=== PATIENT | female | born 1985 | race Caucasian/White ===

== ENCOUNTER → 2025-04-09 | Outpatient (CLI) | payer OTHER, SELFPAY ==
[2025-04-09 10:55] LABS: Hematocrit 30.7 % (37-47); Hemoglobin 8.9 g/dL (12.0-15.0); Immature Granulocytes Count 0.020 X10^3/uL (0.0-0.0); Mean Corp Hgb Conc 29.0 g/dL (32-36); Mean Corpuscular Volume 78.5 fL (81-99); Mean Platelet Vol. 9.1 fl (6.2-12.0); NRBC Flagged by Analyzer 0 % (0-5); POSITIVE MORPHOLOGY YES; Platelet Count 462 K/mm3 (150-450); RBC Distribution Width CV 25.3 % (11.6-14.6); RBC Distribution Width SD 52.2 fl (35.1-43.9); Red Blood Count 3.91 M/mm3 (4.2-5.4); White Blood Count 4.6 K/mm3 (4.4-11.0)
[2025-04-09 10:58] LABS: Differential Indicated SCAN CRITERIA MET
== END | disposition home or self-care (01) ==
PROVIDERS: PCP Family Medicine; Referring Provider Student in an Organized Health Care Education/Training Program; Visit Provider Student in an Organized Health Care Education/Training Program
DX: D64.9 Anemia, unspecified (principal); R14.0 Abdominal distension (gaseous)
CPT/HCPCS: 36415; 85025

== ENCOUNTER 2025-05-07 09:27 | Day surgery (SDC) | payer SELFPAY, OTHER ==
--- NOTE | 2025-05-02 23:07 | PAT.ANE_ITS ---
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 When Was Last Pacemaker Check QUESTION #4 FULL TEXT: You/Your Family Experience fever (hyperthermia) with Anesthesia Last Oral Intake Last Oral intake: Last Oral Intake NPO since Meds taken in AM with sips of water? Meds patient instructed to take am of surgery PONV PONV - frame stripper and crusher: PONV - frame stripper and crusher Female Yes 05/02/25 13:23 HX of Motion Sickness No 05/02/25 13:23 HX of N/V After Surgery No 05/02/25 13:23 Non-Smoker Yes 05/02/25 13:23 Duration of Surgery greater No 05/02/25 13:23 than 60 minutes Number of Risk Factors 2 05/02/25 13:23 PONV Score Moderate Risk 05/02/25 13:23 Respiratory Assessment Respiratory Assessment - frame stripper and crusher: Respiratory Tract Infection Hx - frame stripper and crusher Hx Respiratory Tract Infection No 05/02/25 13:23 STOP Sleep Apnea STOP Sleep Apnea - frame stripper and crusher: STOP Sleep Apnea - frame stripper and crusher Hx Hypertension No 05/02/25 13:23 Hx Sleep Apnea No 05/02/25 13:23 CPAP BIPAP Do you snore loudly (louder No 05/02/25 13:23 than talking or can be heard Do you often feel tired/ No 05/02/25 13:23 fatigued/ sleepy during daytime? Has anyone observed you stop No 05/02/25 13:23 breathing during sleep? STOP Results Negative 05/02/25 13:23 QUESTION #5 FULL TEXT : Do you snore loudly (louder than talking or can be heard through closed doors)? 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 Specify any problems Hx of Preganancy in last 3 N/A 05/02/25 13:23 Months Nurse Filling Out Transfusion NBUCHER 05/02/25 13:23 & Questions: Date: 05/02/25 05/02/25 13:23 Time: 05/02/25 13:23 Patient unable to answer at this time (ie. confused, unrespo /Reproduction History /Reproductive History - frame stripper and crusher: /Reproductive Hx- frame stripper and crusher Hx Now No 05/02/25 13:23 Gestational Age (in weeks): EDC: Hx Hx Para Hx Section SAB No 05/02/25 13:23 Does the father of the baby or his family experience fever w Father of the baby Malignant Hypertension history comment PFSH Medical History Wears glasses Wears dentures Low iron Migraine headache Non-smoker Home Medications ?Medication ?Instructions ?Recorded ?Last Taken ?Type ferrous sulfate 27 mg iron tablet 27 mg PO QDAY Unknown History Allergy/AdvReac Type Severity Reaction Status Date / Time No Known Allergies Allergy Verified 05/02/25 13:22 Social History Smoking Status: Never smoker alcohol intake: never substance use type: does not use what type of physical activity do you participate in: none Audit: Pertinent Findings Pertinent Findings Additional pertinent findings: 04/09/2025. Hemoglobin is 8.9. Upper and lower endoscopies are to be done as part of the workup. Recommendation Anesthesia Recommendation Anesthesia recommendation: OPTIMIZED for anesthesia
[2025-05-07] VITALS (9 sets, daily range): BP systolic 97–112; BP diastolic 61–89; PULSE 59–80; RESP 16; TEMP 36.4–37.4; O2SAT 99–100; BMI 21.7
[2025-05-07 09:46] LABS: Internal QC Validated? YES +Cl - CLEAR BKGD; Pregnancy, Urine Negative Negative
[2025-05-07 09:47] LABS: Record Kit Lot#,Urine Preg 0000980607
[2025-05-07] MEDS: Lactated Ringers 1,000 ML 15 ML IV (09:53)
--- NOTE | 2025-05-07 10:16 | PCM.HP.STD ---
HPI - General General Date of Admission: 05/07/25 Date of Service: 05/07/25 HPI Narrative ANNALISE GAINES, is a 39 F who presents [ Chief Complaint: Anemia Details: ANNALISE GAINES, is a 39 F who presents to the office today for establishment. Patient referred from primary care provider due to bloating and significant anemia. Patient notes that last week she was seen in the ED due to extreme weakness. In the ED her hemoglobin was 7.7. She was discharged with omeprazole and ferrous sulfate. She denies abdominal pain, constipation, diarrhea, black or tarry stool or blood in her stool. She is unsure if she has heavy periods or long periods. She does not see an oncologist welfare visitor but was told in the ER that she may benefit from having a uterine ultrasound. ] [facility] Medical History Wears glasses Wears dentures Low iron Migraine headache Non-smoker Home Medications ?Medication ?Instructions ?Recorded ?Last Taken ?Type ferrous sulfate 27 mg iron tablet 27 mg PO QDAY 04/09/25 Unknown History Allergy/AdvReac Type Severity Reaction Status Date / Time No Known Allergies Allergy Verified 05/02/25 13:22 Social History Smoking Status: Never smoker alcohol intake: never substance use type: does not use what type of physical activity do you participate in: none ROS Constitutional Constitutional: Denies fatigue, fever(s), poor appetite, weight gain or weight loss Gastrointestinal Gastrointestinal: Denies belching, bloating, change in bowel habits, change in stool character, chewing difficulty, coffee ground emesis, constipation, cramping, diarrhea, dyspepsia, dysphagia, early satiety, excessive flatus, fecal incontinence, heartburn, hematemesis, hematochezia, hemorrhoids, loose stools, melena, nausea, odynophagia, rectal bleeding, tenesmus, vomiting or weight changes Vital Signs Vital Signs Vital Signs: 05/07/25 09:54 05/07/25 09:54 05/07/25 09:54 Temperature 99.4 F H Temperature Source Temporal Pulse Rate 70 Respiratory Rate 16 Respiratory Pattern Normal Blood Pressure 112/89 H Blood Pressure Mean 96 Blood Pressure Source Monitor Blood Pressure Position Semi-Fowlers Blood Pressure Location Left Arm Baseline BP 112/89 Pulse Ox 100 Oxygen Delivery Method Room Air Weight Weight: 119 lb 0.794 oz Body Mass Index (BMI) 21.7 Physical Exam Const alert, oriented x3, no apparent distress and healthy appearing General Appearance: cooperative GI normal to inspection, nondistended, normoactive bowel sounds, soft to palpation, non-tender and non-distended Percussion: normal to percussion Rectal Exam: deferred Results Lab / Micro Data Labs: Laboratory Results - last 24 hr 05/07/25 09:40: Urine Test Negative Assessment & Plan Assessment/Plan (1) Bloating: (2) Anemia: PLAN: Assessment and Plan Assessment and Plan (1) Anemia: Status: Acute Plan: Annalise is a 39-year-old female patient here today for evaluation of anemia and bloating. Patient seen in the ED 1 week ago due to extreme weakness and was found to have a hemoglobin of 7.7. She was started on omeprazole and ferrous sulfate. Patient denies abdominal pain, heartburn, blood in her stool or black tarry stool. She is unsure if she has heavy periods and does not see gynecology. Will repeat CBC today. She was scheduled for EGD and colonoscopy. I recommended she establish with a welfare visitor for possible uterine ultrasound. Her low hemoglobin may be related to menstrual blood loss. - Repeat CBC - Continue iron and PPI - EGD and colonoscopy Note: Earnest speech recognition associate director finance software was used to create portions of this document. Sound-alike and misspelled words, as well as other associate director finance errors may be contained in the documentation. (2) Bloating: Status: Acute Orders: Orders CBC W/Diff, Automated Today D64.9 - Anemia, unspecified, R14.0 - Abdominal distension (gaseous) Coding
--- NOTE | 2025-05-07 10:28 | PRE.ANES_ITS ---
ASA Classification* ASA Classification ASA Classification: 2 Assessment & Plan Anesthesia* Anesthesia Assessment Anesthesia Assessment: Discussed sedation and/or anesthesia options, risks, benefits, and alternatives with patient/parents/legal guardian/POA. Questions invited. The patient/parents/legal guardian/POA seems to understand and agrees to proceed with anesthesia plan. Reviewed the physical assessment, medical history, allergy history and patient home medications list prior to surgery/procedure/anesthetic and documented any changes. Performed airway and anesthesia risk assessments. Anesthesia Type Anesthesia Type: MAC History Source History Obtained from:: Patient and Chart Anesthesia Focused Assessment* Temperature: 99.4 F Pulse Rate: 70 Blood Pressure: 112/89 Respiratory Rate: 16 Pulse Ox: 100 Oxygen Delivery Method: Room Air Airway Assessment Mouth opens: >3 cm Mallampati Score: IV Teeth Condition: Dentures (Patient has upper dentures. These will come out.) and Missing (Patient is missing several teeth on the bottom. 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 When Was Last Pacemaker Check QUESTION #4 FULL TEXT: You/Your Family Experience fever (hyperthermia) with Anesthesia Last Oral Intake Last Oral intake: Last Oral Intake NPO since 07:30 05/07/25 09:54 Meds taken in AM with sips of No 05/07/25 09:54 water? Meds patient instructed to take am of surgery Any additional information?: Yes NPO since: 07:30 (Patient finished her prep at 7:30 AM.) PONV PONV - sonar watchstander: PONV - sonar watchstander Female Yes 05/02/25 13:23 HX of Motion Sickness No 05/02/25 13:23 HX of N/V After Surgery No 05/02/25 13:23 Non-Smoker Yes 05/02/25 13:23 Duration of Surgery greater No 05/02/25 13:23 than 60 minutes Number of Risk Factors 2 05/02/25 13:23 PONV Score Moderate Risk 05/02/25 13:23 Height & Weight Height & Weight: Anesthesia: Height & Weight Height 5 ft 2 in 05/07/25 09:54 Weight: 54 kg 05/07/25 09:54 Body Mass Index (BMI) 21.7 05/07/25 09:54 Respiratory Assessment Respiratory Assessment - sonar watchstander: Respiratory Tract Infection Hx - sonar watchstander Hx Respiratory Tract Infection No 05/02/25 13:23 STOP Sleep Apnea STOP Sleep Apnea - sonar watchstander: STOP Sleep Apnea - sonar watchstander Hx Hypertension No 05/02/25 13:23 Hx Sleep Apnea No 05/02/25 13:23 CPAP BIPAP Do you snore loudly (louder No 05/02/25 13:23 than talking or can be heard Do you often feel tired/ No 05/02/25 13:23 fatigued/ sleepy during daytime? Has anyone observed you stop No 05/02/25 13:23 breathing during sleep? STOP Results Negative 05/02/25 13:23 QUESTION #5 FULL TEXT : Do you snore loudly (louder than talking or can be heard through closed doors)? 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 Specify any problems Hx of Preganancy in last 3 N/A 05/02/25 13:23 Months Nurse Filling Out Transfusion NBUCHER 05/02/25 13:23 & Questions: Date: 05/02/25 05/02/25 13:23 Time: 05/02/25 13:23 Patient unable to answer at this time (ie. confused, unrespo /Reproduction History /Reproductive History - sonar watchstander: /Reproductive Hx- sonar watchstander Hx Now No 05/02/25 13:23 Gestational Age (in weeks): EDC: Hx Hx Para Hx Section SAB No 05/02/25 13:23 Does the father of the baby or his family experience fever w Father of the baby Malignant Hypertension history comment Active Medications Active Medications: Current Medications Generic Name Dose Route Start Last Admin Trade Name Freq PRN Reason Stop Dose Admin Lactated Ringer's 1,000 mls @ 15 mls/hr 05/07/25 09:45 05/07/25 09:53 IV 15 mls/hr .Q48H GREGORIA Administration PFSH Medical History Wears glasses Wears dentures Low iron Migraine headache Non-smoker Home Medications ?Medication ?Instructions ?Recorded ?Last Taken ?Type ferrous sulfate 27 mg iron tablet 27 mg PO QDAY Unknown History Allergy/AdvReac Type Severity Reaction Status Date / Time No Known Allergies Allergy Verified 05/02/25 13:22 Surgical History (Updated 05/07/25 @ 10:[address] Hugo Dumont MD) Finger laceration involving tendon Social History Smoking Status: Never smoker alcohol intake: never substance use type: does not use what type of physical activity do you participate in: none Review of Systems (Anesthesia) ROS Narrative System reviewed and no additional complaints, except as documented.
--- OUTSIDE RECORDS SUMMARY | 2025-05-07 10:39 | XMS RPT_ITS | CCD ---
Author Organization [facility] CliniSynm Care Team Providers Care Staff Command And Control Officer Name Role Phone KEYON HYMAN, DR JACK Crawford Primary Care Physician Shelby kathy ANDRADE MD, DR JACK Crawford Primary Care Unavailjay CONNER MD, EVARISTO Jacobs Attending Unavailable Ruby Rodriguez Attending Unavailable Ruby Rodriguez Referring Unavailable Ruby Rodriguez Attending Unavailable Jack Andrade Primary Care Unavailable Friend, Paul Attending Unavailable Jack Andrade Primary Care Unavailable Ruby Dixon Attending Physician Dr. Jack Andrade DO Primary Care Physician [phone] Ruby Dixon Referring Provider Medications Current Medications Medication Drug Class(es) Dates Sig (Normalized) Sig (Original) ferrous sulfate 134 mg oral tablet (1 source) Start: 04-09-2025 take 1 tablet by mouth once daily omeprazole 20 mg delayed release oral capsule (1 source) Proton Pump Inhibitor Start: 04-09-2025 take 1 capsule by mouth once daily Problems Problem Classification Problem Date Documented Da te Episodic/Chronic Deficiency and other anemia (2 sources) Iron deficiency anemia; Translations: [Iron deficiency anemia, unspecified] Onset: 04-02-2025 Episodic Deficiency and other anemia (1 source) Iron deficiency anemia, unspecified; Translations: [Iron deficiency anemia, unspecified] Onset: 04-02-2025 Episodic Deficiency and other anemia (1 source) Anemia, unspecified; Translations: [Anemia, unspecified] Onset: 04-14-2025 Episodic Deficiency and other anemia (2 sources) Anemia; Translations: [Anemia, unspecified] 04-09-2025 Episodic Headache; including migraine (1 source) Frequent headache; Translations: [Frequent headaches] 04-09-2025 Episodic Menstrual disorders (2 sources) Menorrhagia; Translations: [Excessive and frequent menstruation with regular cycle] Onset: 04-02-2025 Chronic Other gastrointestinal disorders (1 source) Abdominal distension (gaseous); Translations: [Abdominal distension (gaseous)] Onset: 04-09-2025 Episodic Other gastrointestinal disorders (2 sources) Abdominal bloating; Translations: [Abdominal distension (gaseous)] 04-09-2025 Episodic Results Test Name Value Interpretation Reference Range Facility Absolute lymphocyte countOrd ered By: Ruby Rodriguez on 04-09-2025 Lymphocytes Auto (Unsp spec) [#/Vol] 1.22 10*3/uL 0.83-4.51 [facility] Absolute neutrophil countOrd ered By: Ruby Rodriguez on 04-09-2025 Neutrophils (Bld) [#/Vol] 2.9 10*3/uL 2.0-7.7 [facility] Automated lymphocyte count a s percentage of total leukocytesOrdered By: Ruby Rodriguez on 04-09-2025 Lymphocytes/100 WBC Auto (Unsp spec) 26.8 % 19-41 [facility] Basophil percentageOrdered B y: Ruby Rodriguez on 04-09-2025 Basophils/100 WBC (Bld) 0.7 % 0-1 [facility] Eosinophil percentageOrdered By: Ruby Rodriguez on 04-09-2025 Eosinophils/100 WBC (Bld) 1.1 % 0-5 [facility] Erythrocyte distribution wid th ratioOrdered By: Ruby Rodriguez on 04-09-2025 Erythrocyte distribution width (RBC) [Ratio] 25.3 % High 11.6-14.6 [facility] Erythrocyte distribution wid th standard deviationOrdered By: Ruby Rodriguez on 04-09-2025 Erythrocyte distribution width (RBC) [Ratio] 52.2 fl High 35.1-43.9 [facility] Gastroenterology Visit Repor ton 04-09-2025 Gastroenterology Visit Report [facility] Gastroenterology [address] [place] [address] OFFICE VISIT Date of Service: 04/09/25 MR#: [id number] Acct: [id number] Name: ANNALISE GAINES Rep #: [id number] : 1985 Provider: MIGUELINA Cline Age/Sex: 39/F [place] [facility] [place] Status: Signed Intake Intake Visit Reasons: Bloating GERD SIGNIFICANT ANEMIA Chief Complaint: Anemia Him Tech Required: No Accompanied by: Is patient in pain?: No Allergies No Known Allergies Allergy (Verified 04/09/25 09:35) Medications ???Medication ???Instructions ???Recorded ???Confirmed ???Type ferrous sulfate 27 mg iron tablet 27 mg PO QDAY 04/09/25 04/09/25 H istory omeprazole 20 mg capsule,delayed 20 mg PO QDAY 04/09/25 04/09/25 Hi story release PFSH Social History Smoking Status: Never smoker alcohol intake: never substance use type: does not use what type of physical activity do you participate in: none HPI HPI Chief Complaint: Anemia Details: ANNALISE GAINES, is a 39 F who presents to the office today for establishment. Patient referred from primary care provider due to bloating and significant anemia. Patient notes that last week she was seen in the ED due to extreme weakness. In the ED her hemoglobin was 7.7. She was discharged with omeprazole and ferrous sulfate. She denies abdominal pain, constipation, diarrhea, black or tarry stool or blood in her stool. She is unsure if she has heavy periods or long periods. She does not see an oncologist hcc coders but was told in the ER that she may benefit from having a uterine ultrasound. ROS Const Constitutional: Positive for fatigue and weight change (loss); No fever(s) ENT ENT: No difficulty swallowing Gastro GI: Positive for bloating and diarrhea; No abdominal pain, belching, change in bowel habits, change in stool character, coffee ground emesis, constipation, cramping, heartburn, difficulty swallowing, feeling full early, excessive flatus, incontinent of stools, Vomiting blood/hematemesis, Blood in stool, loose stools, Black,tarry stools, nausea/dyspepsia, pain with swallowing, vomiting or other Musc Musculoskeletal: Positive for restless legs; No joint pain Skin Skin: No yellowing of the eye or itchy eyes Neuro Neurology: Positive for restless legs Psych Psychiatric: No anxiety and Positive for depression Endo Endocrine: Positive for fatigue and weight change (loss) Aller/Imm Allergy/Immunologic : No itchy eyes Jona/Lymp Hematologic/Lymphat ic: No easy bleeding or easy bruising Exam Const General: cooperative, healthy appearing and comfortable Nutritional Appearance: average body habitus Orientation: alert HENMT Head: normal to inspection Ears: hearing grossly normal bilaterally Eyes General: appearance normal, both eyes and all related structures Neck Neck: normal visual inspection Chest Chest palpation inspection: normal inspection of the chest Resp Effort Inspection: normal respiratory effort Cardio Rate: regular rate Rhythm: regular rhythm GI Inspection: normal to inspection Auscultation: normal bowel sounds Palpation: soft and nontender Assessment and Plan Assessment and Plan (1) Anemia: Status: Acute Plan: Annalise is a 39-year-old female patient here today for evaluation of anemia and bloating. Patient seen in the ED 1 week ago due to extreme weakness and was found to have a hemoglobin of 7.7. She was started on omeprazole and ferrous sulfate. Patient denies abdominal pain, heartburn, blood in her stool or black tarry stool. She is unsure if she has heavy periods and does not see gynecology. Will repeat CBC today. She was scheduled for EGD and colonoscopy. I recommended she establish with a hcc coders for possible uterine ultrasound. Her low hemoglobin may be related to menstrual blood loss. - Repeat CBC - Continue iron and PPI - EGD and colonoscopy Note: [employer] speech recognition heel pricker software was used to create portions of this document. Sound-alike and misspelled words, as well as other heel pricker errors may be contained in the documentation. (2) Bloating: Status: Acute Orders: Orders CBC W/Diff, Automated Today D64.9 - Anemia, unspecified, R14.0 - Abdominal distension (gaseous) Coding Level of Care Code Off vis,est,level 3 Diagnoses Anemia D64.9 Bloating R14.0 04/09/25 0957 Date Ruby MCINTYRE Cosigner Signature: Date (if applicable) CC: Normal [facility] Hematocrit Auto (Bld) [Volum e fraction]Ordered By: Ruby Rodriguez on 04-09-2025 Hematocrit (Bld) [Volume fraction] 30.7 % Low 37-47 [facility] Hemoglobin measurementOrdere d By: Ruby Rodriguez on 04-09-2025 Hemoglobin (Bld) [Mass/Vol] 8.9 g/dL Low 12.0-15.0 [facility] Immature granulocytes/100 WB C Auto (Bld)Ordered By: Ruby Rodriguez on 04-09-2025 Immature granulocytes/100 WBC (Bld) 0.400 % 0.0-0.9 [facility] Comment on above: IG% - Immature Granu locytes (promyelocytes, myelocytes and metamyelocytes) > 1% indicates that a LEFT SHIFT is Present. MCV (mean corpuscular volume ) determinationOrdered By: Ruby Rodriguez on 04-09-2025 MCV (RBC) [Entitic vol] 78.5 fL Low 81-99 [facility] Mean corpuscular hemoglobin (MCH) determinationOrdered By: Ruby Rodriguez on 04-09-2025 MCH (RBC) [Entitic mass] 22.8 pg Low 27.0-32.0 [facility] Mean corpuscular hemoglobin concentration (MCHC) determinationOrdered By: Ruby Rodriguez on 04-09-2025 MCHC (RBC) [Mass/Vol] 29.0 g/dL Low 32-36 [facility] Mean platelet volume determi nationOrdered By: Ruby Rodriguez on 04-09-2025 Platelet mean volume (Bld) [Entitic vol] 9.1 fL 6.2-12.0 [facility] Monocyte percentageOrdered B y: Ruby Rodriguez on 04-09-2025 Monocytes/100 WBC (Bld) 6.4 % 0-10 [facility] Neutrophil percentageOrdered By: Ruby Rodriguez on 04-09-2025 Neutrophils/100 WBC (Bld) 64.6 % 47-70 [facility] Nucleated red blood cell per centageOrdered By: Ruby Rodriguez on 04-09-2025 Nucleated RBC/100 WBC (Bld) [Ratio] 0 % 0-5 [facility] Ovalocyte detectionOrdered B y: Rubynilton Rodriguez on 04-09-2025 Ovalocytes LM Ql (Bld) 1+ [facility] Platelet countOrdered By: Rosalia elder Jennifer on 04-09-2025 Platelets (Bld) [#/Vol] 462 10*3/uL High 150-450 [facility] RBC Auto (Bld) [#/Vol]Ordere d By: Ruby Rodriguez on 04-09-2025 RBC (Bld) [#/Vol] 3.91 10*6/uL Low 4.2-5.4 [facility] White blood cell (WBC) count Ordered By: Ruby Rodriguez on 04-09-2025 WBC (Bld) [#/Vol] 4.6 10*3/uL 4.4-11.0 [facility] .Auto Diffon 04-02-2025 Basophil, Absolute 0.0 10 3/mcL Normal 0.0-0.3 [facility] Comment on above: Performed By: #### G FR, MORPH, BMP, ADIFF, CBC, ABOGEL, ABSGEL, ZORAN, W #### [address] [address] Basophils/100 WBC (Bld) 0.6 % Normal 0.0-2.5 [facility] Comment on above: Performed By: #### G FR, MORPH, BMP, ADIFF, CBC, ABOGEL, ABSANA ROSA, ZORAN, MDW #### [address] [address] Eosinophil, Absolute 0.0 10 3/mcL Normal 0.0-0.7 [facility] Comment on above: Performed By: #### G FR, MORPH, BMP, ADIFF, CBC, ABOGEL, ABSGEL, ANGEL MEEHAN #### [address] [address] Eosinophils/100 WBC (Bld) 0.3 % Normal 0.0-6.0 [facility] Comment on above: Performed By: #### G FR, MORPH, BMP, ADIFF, CBC, ABOGEL, ABSGEL, ZORAN, W #### [address] [address] Lymphocyte, Absolute 0.9 10 3/mcL Normal 0.9-4.3 [facility] Comment on above: Performed By: #### G FR, MORPH, BMP, ADIFF, CBC, ABOGEL, ABSGEL, ANEU, ANGEL #### [address] [address] Lymphocytes/100 WBC (Bld) 16.4 % Low 20.0-40.0 [facility] Comment on above: Performed By: #### G FR, MORPH, BMP, ADIFF, CBC, ABOGEL, ABSGEL, ANEU, ANGEL #### [address] [address] Monocyte, Absolute 0.2 10 3/mcL Normal 0.1-1.4 [facility] Comment on above: Performed By: #### G FR, MORPH, BMP, ADIFF, CBC, ABOGEL, ABSGEL, ANEU, ANGEL #### [address] [address] Monocytes/100 WBC (Bld) 4.3 % Normal 2.0-13.0 [facility] Comment on above: Performed By: #### G FR, MORPH, BMP, ADIFF, CBC, ABOGEL, ABSGEL, ANGEL MEEHAN #### [address] [address] Neutrophils/100 WBC (Bld) 78.4 % High 50.0-75.0 [facility] Comment on above: Performed By: #### G FR, MORPH, BMP, ADIFF, CBC, ABOGEL, ABSGEL, ANEU, ANGEL #### [address] [address] .GFRon 04-02-2025 Estimated Glomerular Filtration Rate 113 ml/min/1.73sqm Normal [facility] Comment on above: Result Comment: Stages of Chronic Kidney Disease (CKD) Stage Description eGFR(ml/min/1.73 sq.m.) CKD 1 Normal kidney function or >=90 normal kindney function with possible kidney damage (ex. Proteinuria) CKD 2 Kidney damage with mild loss 60-89 of kidney function CKD 3a Mild to moderate loss of kidney 45-59 function CKD 3b Moderate to severe loss of 30-44 of kindey function CKD 4 Severe loss of kidney function 15-29 CKD 5 Kidney failure <15 Note: (go live 2024) the eGFR calculation was updated to the 2020 CKD-EPI creatinine equation without a race factor to calculate the eGFR results. Performed By: #### G FR, MORPH, BMP, ADIFF, CBC, ABOGEL, ABSGEL, ANEU, MDW #### [place] [address] .MDWon 04-02-2025 Monocyte Distribution Width 18.91 Normal 0.00-20.00 [facility] Comment on above: Result Comment: For ED adult patients suspected of sepsis, MDW<=20.0 does not rule out sepsis or risk of sepsis Performed By: #### G FR, MORPH, BMP, ADIFF, CBC, ABOGEL, ABSGEL, ANEU, MDW #### [place] [address] .Morphon 04-02-2025 Acanthocytes 1+ Normal [facility] Comment on above: Performed By: #### G FR, MORPH, BMP, ADIFF, CBC, ABOGEL, ABSGEL, ANEU, MDW #### [place] [address] Anisocytosis Ql (Bld) 1+ Normal [facility] Comment on above: Performed By: #### G FR, MORPH, BMP, ADIFF, CBC, ABOGEL, ABSGEL, ANEU, MDW #### [place] [address] Hypochrom 1+ Normal [facility] Comment on above: Performed By: #### G FR, MORPH, BMP, ADIFF, CBC, ABOGEL, ABSGEL, ANEU, MDW #### [place] [address] Microcytosis 2+ [facility] Comment on above: Performed By: #### G FR, MORPH, BMP, ADIFF, CBC, ABOGEL, ABSGEL, ANEU, MDW #### [place] [address] Ovalocytes 1+ Normal [facility] Comment on above: Performed By: #### G FR, MORPH, BMP, ADIFF, CBC, ABOGEL, ABSGEL, ANGEL MEEHAN #### [address] [address] Platelet Estimate Slt Increased Normal [facility] Comment on above: Performed By: #### G FR, MORPH, BMP, ADIFF, CBC, ABOGEL, ABSGEL, ZORAN, ANGEL #### [address] [address] Schistocyte 1+ Normal [facility] Comment on above: Performed By: #### G FR, MORPH, BMP, ADIFF, CBC, ABOGEL, ABSGEL, ANGEL MEEHAN #### [address] [address] .NEUABSon 04-02-2025 Neutrophil, Absolute 4.3 10 3/mcL Normal 2.3-8.1 [facility] Comment on above: Performed By: #### G FR, MORPH, BMP, ADIFF, CBC, ABOGEL, ABSGEL, ANGEL MEEHAN #### [address] [address] ABO/Rh (Gel)on 04-02-2025 ABO/Rh Interp Negative Invalid Interpretation Code [facility] Comment on above: Performed By: #### G FR, MORPH, BMP, ADIFF, CBC, ABOGEL, ABSGEL, ANEUANGEL #### [address] [address] ABS (Gel)on 04-02-2025 ABSC Interp (Gel) Negative Normal [facility] Comment on above: Performed By: #### G FR, MORPH, BMP, ADIFF, CBC, ABOGEL, ABSGEL, ANEUANGEL #### [address] [address] BMPon 04-02-2025 BUN/Creatinine Ratio 14.5 ratio Normal 10.0-22.0 [facility] Comment on above: Performed By: #### G FR, MORPH, BMP, ADIFF, CBC, ABOGEL, ABSGEL, ANGEL MEEHAN #### [address] [address] Calcium [Mass/Vol] 9.4 mg/dL Normal 8.7-10.4 [facility] Comment on above: Performed By: #### G FR, MORPH, BMP, ADIFF, CBC, ABOJEFFREY OSEGUERA ANEU, MDW #### [address] [address] Chloride [Moles/Vol] 108 mmol/L Normal 98-110 [facility] Comment on above: Performed By: #### G FR, MORPH, BMP, ADIFF, CBC, ABOGEL, ABSZORAN OSEGUERA MDW #### [address] [address] CO2 [Moles/Vol] 24 mmol/L Normal 22-32 [facility] Comment on above: Performed By: #### G FR, MORPH, BMP, ADIFF, CBC, ABOGEL, ABSZORAN OSEGUERA MDW #### [address] [address] Creatinine [Mass/Vol] 0.69 mg/dL Normal 0.50-1.20 [facility] Comment on above: Result Comment: Test ing performed on [employer] analyzer using enzymatic creatinine methodology. Performed By: #### G FR, MORPH, BMP, ADIFF, HALLIE, JEFFREY SANTAMARIA ANEU, MDW #### [address] [address] Electrolyte Balance 11.0 mEq/L Normal 4.0-15.0 [facility] Comment on above: Performed By: #### G FR, MORPH, BMP, ADIFF, CBC, ABOANA ROSA ABSZORAN OSEGUERA MDW #### [address] [address] Glucose [Mass/Vol] 86 mg/dL Normal 70-110 [facility] Comment on above: Performed By: #### G FR, MORPH, BMP, ADIFF, CBC, ABOGEL, ABSZORAN OSEGUERA MDW #### [address] [address] Potassium [Moles/Vol] 3.6 mmol/L Normal 3.5-5.0 [facility] Comment on above: Performed By: #### G FR, MORPH, BMP, ADIFF, CBC, ABOGEL, ABSGEL, ANEU, W #### [place] [address] Sodium [Moles/Vol] 143 mmol/L Normal 136-145 [facility] Comment on above: Performed By: #### G FR, MORPH, BMP, ADIFF, CBC, ABOGEL, ABSGEL, ANEU, MDW #### [place] [id number] Urea nitrogen [Mass/Vol] 10.0 mg/dL Normal 8.0-22.0 [facility] Comment on above: Performed By: #### G FR, MORPH, BMP, ADIFF, CBC, ABOGEL, ABSGEL, MD ZORANW #### [place] [address] CBCon 04-02-2025 Erythrocyte distribution width (RBC) [Ratio] 19.8 % High 11.5-15.5 [facility] Comment on above: Performed By: #### G FR, MORPH, BMP, ADIFF, CBC, ABOGEL, ABSGEL, ANEU, W #### [place] [address] Hematocrit (Bld) [Volume fraction] 25.8 % Low 34.0-46.0 [facility] Comment on above: Performed By: #### G FR, MORPH, BMP, ADIFF, CBC, ABOGEL, ABSGEL, ANEU, W #### [place] [id number] Hgb 7.7 G/dL Low 12.0-16.0 [facility] Comment on above: Performed By: #### G FR, MORPH, BMP, ADIFF, CBC, ABOGEL, ABSGEL, ANEU, ANGEL #### [place] [id number] MCH (RBC) [Entitic mass] 20.6 pg Low 27.0-33.0 [facility] Comment on above: Performed By: #### G FR, MORPH, BMP, ADIFF, CBC, ABOGEL, ABSGEL, ANEU, W #### [place] [id number] MCHC 29.8 G/dL Low 32.0-36.0 [facility] Comment on above: Performed By: #### G FR, MORPH, BMP, ADIFF, CBC, ABOANA ROSA, ZORAN MURPHY MDW #### [place] [address] MCV (RBC) [Entitic vol] 69.1 fL Low 80.0-99.0 [facility] Comment on above: Performed By: #### G FR, MORPH, BMP, ADIFF, CBC, ABOGEL, ABSANA ROSA, ANGEL MEEHAN #### [place] [address] Platelet 483 10 3/mcL High 150-450 [facility] Comment on above: Performed By: #### G FR, MORPH, BMP, ADIFF, CBC, ABOANA ROSA, ABSZORAN OSEGUERA MDW #### [place] [address] Platelet mean volume (Bld) [Entitic vol] 7.4 fL Normal 6.6-10.5 [facility] Comment on above: Performed By: #### G FR, MORPH, BMP, ADIFF, CBC, ROSALIO, ZORAN MURPHY MDW #### [place] [address] RBC 3.74 10 6/mcL Low 4.10-5.30 [facility] Comment on above: Performed By: #### G FR, MORPH, BMP, ADIFF, CBC, ROSALIO, ZORAN MURPHY MDW #### [place] [address] WBC 5.4 10 3/mcL Normal 4.5-10.8 [facility] Comment on above: Performed By: #### G FR, MORPH, BMP, ADIFF, CBC, JEFFREY SANTAMARIA ANEU, MDW #### [place] [address] LABORATORYOrdered By: Meme Sequeira on 04-02-2025 ABO and Rh group Nom (Bld) Blood group A Rh(D) negative Invalid Interpretation Code AH BB Auto SS Blood group antibody screen Ql Negative ABSC (04/02/25 12:50 PM) Normal AH BB Auto SS LABORATORYOrdered By: SYSTEM SYSTEM on 04-02-2025 Acanthocytes LM Ql (Bld) 1+ *NA* (04/02/25 12:50 PM) Invalid Interpretation Code AH Workflow SS Anisocytosis Ql (Bld) 1+ *NA* (04/02/25 12:50 PM) Invalid Interpretation Code AH Workflow SS Basophils (Bld) [#/Vol] 0.0 103/mcL Normal 0.0 - 0.3 10^3/mcL AH Workflow SS Basophils/100 WBC (Bld) 0.6 % Normal 0.0 - 2.5 % AH Workflow SS Calcium [Mass/Vol] 9.4 mg/dL Normal 8.7 - 10. 4 mg/dL AH ADM SS Chloride [Moles/Vol] 108 mmol/L Normal 98 - 11 0 mEq/L ADM SS CO2 [Moles/Vol] 24 mmol/L Normal 22 - 32 mEq/L ADM SS Creatinine [Mass/Vol] 0.69 mg/dL Normal 0.50 - 1.20 mg/dL ADM SS Comment on above: Interpretive Data: T esting performed on [employer] analyzer using enzymatic creatinine methodology. Electrolyte Balance 11.0 mEq/L Normal 4.0 - 15 .0 mEq/L AH ADM SS Eosinophils (Bld) [#/Vol] 0.0 103/mcL Normal 0.0 - 0.7 10^3/mcL AH Workflow SS Eosinophils/100 WBC (Bld) 0.3 % Normal 0.0 - 6.0 % AH Workflow SS Erythrocyte distribution width (RBC) [Ratio] 19.8 % High 11.5 - 15.5 % AH Workflow SS GLOMERULAR FILTRATION RATE/1.73 SQ M.PREDICTED:ARVRAT:PT:SE R/PLAS/BLD:QN:CREATININE -BASED FORMULA (CKD-EPI 2020) 113 ml/min/1.73sqm Invalid Interpretation Code ADM SS Comment on above: Interpretive Data: Stages of Chronic Kidney Disease (CKD) Stage Description eGFR(ml/min/1.73 sq.m.) CKD 1 Normal kidney function or >=90 normal kindney function with possible kidney damage (ex. Proteinuria) CKD 2 Kidney damage with mild loss 60-89 of kidney function CKD 3a Mild to moderate loss of kidney 45-59 function CKD 3b Moderate to severe loss of 30-44 of kindey function CKD 4 Severe loss of kidney function 15-29 CKD 5 Kidney failure <15 Note: (go live 2024) the eGFR calculation was updated to the 2020 CKD-EPI creatinine equation without a race factor to calculate the eGFR results. Glucose [Mass/Vol] 86 mg/dL Normal 70 - 110 mg/dL AH ADM SS Hematocrit (Bld) [Volume fraction] 25.8 % Low 34.0 - 46.0 % AH Workflow SS Hemoglobin (Bld) [Mass/Vol] 7.7 G/dL Low 12.0 - 16.0 G/dL AH Workflow SS Hypochromia Ql (Bld) 1+ *NA* (04/02/25 12:50 PM) Invalid Interpretation Code AH Workflow SS Lymphocytes (Bld) [#/Vol] 0.9 103/mcL Normal 0.9 - 4.3 10^3/mcL AH Workflow SS Lymphocytes/100 WBC (Bld) 16.4 % Low 20.0 - 40.0 % AH Workflow SS MCH (RBC) [Entitic mass] 20.6 pg Low 27. 0 - 33.0 pg AH Workflow SS MCHC 29.8 G/dL Low 32.0 - 36.0 G/dL AH Workflow SS MCV (RBC) [Entitic vol] 69.1 fL Low 80.0 - 99.0 fL AH Workflow SS Microcytes Ql (Bld) 2+ *NA* (04/02/25 12:50 PM) Invalid Interpretation Code AH Workflow SS Monocyte distribution width Auto (Bld) [Entitic vol] 18.91 1 Normal 0.00 - 20.00 AH Workflow SS Comment on above: Result Comment: For ED adult patients suspected of sepsis, MDW<=20.0 does not rule out sepsis or risk of sepsis Monocytes (Bld) [#/Vol] 0.2 103/mcL Normal 0.1 - 1.4 10^3/mcL AH Workflow SS Monocytes/100 WBC (Bld) 4.3 % Normal 2.0 - 13.0 % AH Workflow SS Neutrophils (Bld) [#/Vol] 4.3 103/mcL Normal 2.3 - 8.1 10^3/mcL AH Workflow SS Neutrophils/100 WBC (Bld) 78.4 % High 50.0 - 75.0 % AH Workflow SS Ovalocytes LM Ql (Bld) 1+ *NA* (04/02/25 12:50 PM) Invalid Interpretation Code AH Workflow SS Platelet mean volume (Bld) [Entitic vol] 7.4 fL Normal 6.6 - 10.5 fL AH Workflow SS Platelets (Bld) [#/Vol] 483 103/mcL High 150 - 450 10^3/mcL AH Workflow SS Platelets LM Ql (Bld) Slt Increased *NA* (04/02/25 12:50 PM) Invalid Interpretation Code AH Workflow SS Potassium [Moles/Vol] 3.6 mmol/L Normal 3.5 - 5.0 mEq/L AH ADM SS RBC (Bld) [#/Vol] 3.74 106/mcL Low 4.10 - 5.3 0 10^6/mcL AH Workflow SS Schistocytes LM Ql (Bld) 1+ *NA* (04/02/25 12:50 PM) Invalid Interpretation Code AH Workflow SS Sodium [Moles/Vol] 143 mmol/L Normal 136 - 145 mEq/L ADM SS Urea nitrogen [Mass/Vol] 10.0 mg/dL Normal 8.0 - 22.0 mg/dL ADM SS Urea nitrogen/Creatinine [Mass ratio] 14.5 ratio Normal 10.0 - 22.0 ratio ADM SS WBC (Bld) [#/Vol] 5.4 103/mcL Normal 4.5 - 10.8 10^3/mcL Workflow SS [facility] 08-14-2020 Mat. Hemorrhage Negative Normal [facility] [place] Comment on above: Performed By: #### [facility] #### [address] [address] [facility] 08-14-2020 Hematocrit (Bld) [Volume fraction] 36.3 % Low 37.0-47.0 [facility] [place] Comment on above: Performed By: #### [facility] #### [address] [address] Hemoglobin (Bld) [Mass/Vol] 12.5 G/dL Normal 12.0-16.0 [facility] Comment on above: Performed By: #### [facility] #### [address] [address] .Auto Diffon 08-13-2020 Ammonia (P) [Mass/Vol] 0.40 10 3/mcL Normal 0.15-1.00 [facility] ([place]) Comment on above: Performed By: #### C BC, ADIFF, ANEU, ABOG, ANSG, A1C #### [address] [address] Basophils (Bld) [#/Vol] 0.00 10 3/mcL Normal 0.00-0.19 [facility] ([place]) Comment on above: Performed By: #### C BC, ADIFF, ANEU, ABOG, ANSG, A1C #### [address] [address] Basophils/100 WBC (Bld) 0.4 % Normal 0.0-2.5 A [facility] ([place]) Comment on above: Performed By: #### C BC, ADIFF, ANEU, ABOG, ANSG, A1C #### [address] [address] Eosinophils (Bld) [#/Vol] 0.10 10 3/mcL Normal 0.00-0.40 [facility] ([place]) Comment on above: Performed By: #### C BC, ADIFF, ANEU, ABOG, ANSG, A1C #### [address] [address] Eosinophils/100 WBC (Bld) 0.8 % Normal 0.0-7.0 [facility] ([place]) Comment on above: Performed By: #### C BC, ADIFF, ANEU, ABOG, ANSG, A1C #### [address] [address] Lymphocytes (Bld) [#/Vol] 1.20 10 3/mcL Normal 0.77-3.85 [facility] ([place]) Comment on above: Performed By: #### C BC, ADIFF, ANEU, ABOG, ANSG, A1C #### [address] [address] Lymphocytes/100 WBC (Bld) 16.2 % Normal 10.0-50.0 [facility] ([place]) Comment on above: Performed By: #### C BC, ADIFF, ANEU, ABOG, ANSG, A1C #### [address] [address] Monocytes/100 WBC (Bld) 4.6 % Normal 1.7-13.0 [facility] ([place]) Comment on above: Performed By: #### C BC, ADIFF, ANEU, ABOG, ANSG, A1C #### [address] [address] Neutrophils/100 WBC (Bld) 78.0 % Normal 37.0-80.0 [facility] ([place]) Comment on above: Performed By: #### C BC, ADIFF, ANEU, ABOG, ANSG, A1C #### [address] [address] .NEUABSon 08-13-2020 Neutrophils (Bld) [#/Vol] 6.00 10 3/mcL Normal 2.85-6.16 [facility] ([place]) Comment on above: Performed By: #### C BC, ADIFF, ANEU, ABOG, ANSG, A1C #### [address] [address] A1Con 08-13-2020 HbA1c (Bld) [Mass fraction] 5.2 % Normal 4.3-6.4 [facility] ([place] Comment on above: Performed By: #### C BC, ADIFF, ANEU, ABOG, ANSG, A1C #### [address] [address] CBCon 08-13-2020 Erythrocyte distribution width (RBC) [Ratio] 22.8 % High 11.5-14.5 [facility] ([place] Comment on above: Performed By: #### C BC, ADIFF, ANEU, ABOG, ANSG, A1C #### [address] [address] Hematocrit (Bld) [Volume fraction] 36.1 % Low 37.0-47.0 [facility] ([place]) Comment on above: Performed By: #### C BC, ADIFF, ANEU, ABOG, ANSG, A1C #### [address] [address] Hemoglobin (Bld) [Mass/Vol] 12.4 G/dL Normal 12.0-16.0 [facility] ([place]) Comment on above: Performed By: #### C BC, ADIFF, ANEU, ABOG, ANSG, A1C #### [address] [address] MCH (RBC) [Entitic mass] 30.9 pg Normal 27.0-31.2 [facility] ([place]) Comment on above: Performed By: #### C BC, ADIFF, ANEU, ABOG, ANSG, A1C #### [address] [address] MCHC (RBC) [Mass/Vol] 34.2 G/dL Normal 33.0-37.0 [facility] ([place]) Comment on above: Performed By: #### C BC, ADIFF, ANEU, ABOG, ANSG, A1C #### [address] [address] MCV (RBC) [Entitic vol] 90.2 fL Normal 80.0-94.0 [facility] ([place]) Comment on above: Performed By: #### C BC, ADIFF, ANEU, ABOG, ANSG, A1C #### [address] [address] Platelet mean volume (Bld) [Entitic vol] 8.0 fL Normal 7.4-10.4 [facility] ([place]) Comment on above: Performed By: #### C BC, ADIFF, ANEU, ABOG, ANSG, A1C #### [address] [address] Platelets (Bld) [#/Vol] 315 10 3/mcL Normal 130-400 [facility] ([place] Comment on above: Performed By: #### C BC, ADIFF, ANEU, ABOG, ANSG, A1C #### [address] [place], [place] [address] RBC (Bld) [#/Vol] 4.00 10 6/mcL Low 4.20-5.40 [facility] ([place]) Comment on above: Performed By: #### C BC, ADIFF, ANEU, ABOG, ANSG, A1C #### [address] [place], [place] [address] WBC (Bld) [#/Vol] 7.70 10 3/mcL Normal 4.60-10.80 [facility] ([place]) Comment on above: Performed By: #### C BC, ADIFF, ANEU, ABOG, ANSG, A1C #### [address] [address] Gel ABOon 08-13-2020 ABO/Rh Interp Negative [facility] ([place]) Comment on above: Performed By: #### C BC, ADIFF, ANEU, ABOG, ANSG, A1C #### [address] [address] Gel ABSon 08-13-2020 Antibody Screen Gel Negative Normal [facility] ([place]) Comment on above: Performed By: #### C BC, ADIFF, ANEU, ABOG, ANSG, A1C #### [address] [place], [place] [address] Vital Signs Date Time Vital Sign Value Performing Clinician Gladys regalado 04-02-2025 12:45-0400 Heart rate 86 /min EVARISTO CONNER MD [facility] 04-02-2025 12:45-0400 Respiratory rate 12 /min EVARISTO CONNER MD [facility] 04-02-2025 12:45-0400 Diastolic Blood Pressure Non-Invasive 80 mm[Hg] EVARISTO CONNER MD [facility] 04-02-2025 12:45-0400 Mean blood pressure 93 mm[Hg] EVARISTO CONNER MD [facility] 04-02-2025 12:45-0400 Systolic Blood Pressure Non-Invasive 131 mm[Hg] EVARISTO CONNER MD [facility] 04-02-2025 12:18-0400 Body temperature 97.7 [degF] EVARISTO CONNER MD [facility] 04-02-2025 12:18-0400 Body weight 55 kg EVARISTO CONENR MD [facility] 04-02-2025 12:18-0400 Diastolic Blood Pressure Non-Invasive 87 mm[Hg] EVARISTO CONNER MD [facility] 04-02-2025 12:18-0400 Heart rate 94 /min EVARISTO CONNER MD [facility] 04-02-2025 12:18-0400 Respiratory rate 18 /min EVARISTO CONNER MD [facility] 04-02-2025 12:18-0400 Systolic Blood Pressure Non-Invasive 134 mm[Hg] EVARISTO CONNER MD [facility] Encounters Encounter Date Encounter Type Care Provider Facility Start: 05-07-2025 ambulatory Paul Hinsdale Facility :[facility] Start: 04-09-2025 End: 04-09-2025 Patient encounter procedure Ruby Rodriguez [facility] Work Phone: Start: 04-09-2025 End: 04-09-2025 ambulatory Ruby Rodriguez Facility:[facility] Start: 04-09-2025 End: 04-09-2025 ambulatory Ruby Rodriguez Facility:[facility] Start: 04-02-2025 End: 04-02-2025 Emergency department patient visit EVARISTO CONNER MD [facility] Payers Date Payer Category Payer Unknown 2025 Self-pay 2025 Unknown [id number] 2025 Private Health Insurance ad1 [id number] 2025 Unknown [id number] 1985 Unknown [id number] [id number] Unknown [id number] [id number] [id number] Unknown [id number] [id number] [id number] Unknown [id number] 2.16.8 [id number] Social History Date Type Detail Facility Start: 08-13-2020 End: 04-09-2025 Tobacco smoking status Never smoked tobacco (finding) [facility] Sexual Orientation [facility] Start: 07-21-2009 Sex Female (finding) [facility] Start: 04-02-2025 No, per patient [facility] Sex Female [facility] Start: 1985 Sex Assigned At Female [facility] Functional Status Date Assessment Result Facility 04-02-2025 Functional Status Independent [facility] 04-02-2025 [facility] 04-02[facility]25 Functional Status ID band on, Call device within reach, Bed in low position, Wheels locked, Upper/Half-Length side-rails up [facility] Mental Status Date Assessment Result Facility 04-02-2025 Mental Status Orientation Oriented x 4 [facility] 04-02-[address] [facility]09-[facility]25 Note Date & Type Note Facility 04-09-2025 Progress note [facility] Discharge instructions 04-02-2025 Note Date & Type Note Facility 04-02-2025 Hospital Discharg e instructions Patient Education 04/02/2025 14:44:12 Anemia, Iron-Deficiency (Adult) Iron-Deficiency Anemia (Adult) Red blood cells carry oxygen to the tissues of your body. Anemia is a condition in which you have too few red blood cells. You need iron to make red cells. Anemia makes you feel tired and run down. When anemia becomes severe, your skin becomes pale. You may feel short of breath after physical activity. Other symptoms include: Headaches Dizziness Leg cramps with physical activity Drowsiness Restless legs Your anemia is caused by not having enough iron in your body. This may be because of: Loss of blood. This can be caused by heavy menstrual periods. It can also be caused by bleeding from the stomach or intestines. Poor diet. You may not be eating enough foods that contain iron. Inability to absorb iron from the foods you eat If your blood count is low enough, your healthcare provider may prescribe an iron supplement. It usually takes about 2 to 3 months of treatment with iron supplements to correct anemia. Severe cases of anemia need a blood transfusion to quickly ease symptoms and deliver more oxygen to the cells. Home care Follow these guidelines when caring for yourself at home: Eat foods high in iron. This will boost the amount of iron stored in your body. It is a natural way to build up the number of blood cells. Good sources of iron include beef, liver, spinach and other dark green leafy vegetables, whole grains, beans, and nuts. Don't overexert yourself. Talk with your healthcare provider before traveling by air or traveling to high altitudes. Follow-up care Follow up with your healthcare provider in 2 months, or as advised. This is to have another red blood cell count to be sure your anemia has been fixed. Call 911 Call 911 or seek immediate medical care if any of these occur: Shortness of breath or chest pain Dizziness or fainting Vomiting blood or passing red or black-colored stool [phone] [employer]. [address] [place] [address]. All rights reserved. This information is not intended as a substitute for professional medical care. Always follow your healthcare professional's instructions. Follow Up Care 04/02/2025 12:17:59 With:[facility] Address: [address] [place] [address]- When:2-4 days With:JACK ANDRADE MD Address: [facility] [address] [place] [address]- When:2-4 days [facility] Emergency department Discharge summary 04-02-2025 Note Date & Type Note Facility 04-02-2025 Emergency departm ent Discharge summary Discharge Instructions Thank you for allowing [facility] to assist you with your healthcare needs. The following is important discharge information regarding your hospital visit. Diagnosis from Today's Visit Iron deficiency anemia Menorrhagia What to Do Next Instructions from Your Care Team No qualifying data available. Post Acute Orders No qualifying data available. You Need to Schedule the Following Appointments Follow Up with [facility] When:Within 2-4 days Where:[address] [place] [address]- Follow Up with JACK ANDRADE MD When:Within 2-4 days Where:[id number] [place] [address]- Allergies NKA Medications Please ask your primary doctor or pharmacist before taking any other medication not listed, including over the counter drugs, herbal medications, vitamins and or supplements as they may interact with your home medications. Please take this list to your next doctor s visit. Bring all medications you take, including over the counter medications, herbals and other supplements with you to your doctor s visit. Patients and families are reminded to discard old lists and to update any records with all medication providers or retail pharmacies. Education Materials Iron-Deficiency Anemia (Adult) Red blood cells carry oxygen to the tissues of your body. Anemia is a condition in which you have too few red blood cells. You need iron to make red cells. Anemia makes you feel tired and run down. When anemia becomes severe, your skin becomes pale. You may feel short of breath after physical activity. Other symptoms include: Headaches Dizziness Leg cramps with physical activity Drowsiness Restless legs Your anemia is caused by not having enough iron in your body. This may be because of: Loss of blood. This can be caused by heavy menstrual periods. It can also be caused by bleeding from the stomach or intestines. Poor diet. You may not be eating enough foods that contain iron. Inability to absorb iron from the foods you eat If your blood count is low enough, your healthcare provider may prescribe an iron supplement. It usually takes about 2 to 3 months of treatment with iron supplements to correct anemia. Severe cases of anemia need a blood transfusion to quickly ease symptoms and deliver more oxygen to the cells. Home care Follow these guidelines when caring for yourself at home: Eat foods high in iron. This will boost the amount of iron stored in your body. It is a natural way to build up the number of blood cells. Good sources of iron include beef, liver, spinach and other dark green leafy vegetables, whole grains, beans, and nuts. Don't overexert yourself. Talk with your healthcare provider before traveling by air or traveling to high altitudes. Follow-up care Follow up with your healthcare provider in 2 months, or as advised. This is to have another red blood cell count to be sure your anemia has been fixed. Call 911 Call 911 or seek immediate medical care if any of these occur: Shortness of breath or chest pain Dizziness or fainting Vomiting blood or passing red or black-colored stool [phone] [employer]. [address] [place] [address], [place] [address]. All rights reserved. This information is not intended as a substitute for professional medical care. Always follow your healthcare professional's instructions. Additional Information VACCINATE! IT SAVES LIVES! Members of the community who have not yet received the COVID-19 vaccine and would like to receive it can visit one of [facility] vaccine clinics. There are many vaccine clinic locations within the [facility]. For locations and available times, please visit www.gettheshot.coronavirus.[place].gov/. It is important to note that some COVID mobile vaccine clinics are held outdoors and may be canceled in rainy or stormy conditions. To learn more about pediatric vaccinations (ages 5-11), we invite you to visit the [facility] webpage. https://www.[facility].org/pages/ 9362-Kaezg-Zoxxxxilhbu-Frequently-Ask ed-Questions.html To learn more about the COVID-19 vaccine, we invite you to visit the CDC website for a list of frequently asked questions. https://www.cdc.gov/coronavirus/2019- ncov/vaccines/faq.html [facility] Access Instructions: Stay connected with your healthcare team and access your personal medical information anytime with the [facility] Patient Portal. If you would like a full copy of your medical records please contact the [facility] Medical Records Department Monday through Monday between 8a.m. and 4:30p.m. Please follow the directions below to access the portal: 1.Access the email account you provided upon registration to the [facility].2.Look for an invitation email from [facility].3.Open the email and access the invitation link: Accept Invitation to [facility].Fill in the required carreon to create your account. To access your account, visit [employer] Sky[employer] or scan the fishfishme code above. Click the blue button labeled Access Patient Portal and then log in with the username and password that you created in the steps above. You can then view a summary of results, a summary of your visits, and the ability to download your summaries to your computer or send the information securely to a physician. Remember that your healthcare information is confidential, so carefully consider who you will allow to register on the [facility] Patient Portal for access to your information. You can also access the [facility] Patient Portal on the [employer]. Simply click on Health Records under Health Data and then click on the [employer] logo. HOW TO SAFELY DISPOSE OF PRESCRIPTION MEDICATIONS Please use one of the following methods to safely dispose of your unused medications. 1.Use a drug disposal kit: the drug disposal pouch allows you to safely discard your old and unused drugs. Ask your nurse to give you one when you are discharged.2.Visit a local take-back location: Many local pharmacies and police departments have programs that collect old and unwanted prescription drugs. Call your local pharmacy or go to http://Sincerely.Grocio/9A7Bj8m to find one close to you.3.Make use of household items: Use cat litter or old coffee grounds to dispose medications if other options are not available. Mix your drugs with these household products, seal them in an airtight container and throw it into the garbage. Call [facility]: [phone] to be sure your drugs can be disposed of in this way. Some medicines may require a different approach.4.Never flush your medications down the toilet. IF YOU HAVE BEEN PRESCRIBED AN OPIOIDS FOR PAIN If you have been prescribed an opioid (such as hydrocodone, oxycodone or morphine), it is critical to understand the possible side effects and risks of opioid pain medications. Even when taken as directed, opioids can have several side effects including: Tolerance, meaning you might need to take more of a medication for the same pain relief. Nausea, vomiting and/or constipation. Sleepiness, dizziness, dry mouth, confusion, depression or itching. Physical dependence, meaning you have withdrawal symptoms when a medication is stopped ? this can develop within a few days. KNOW YOUR RESPONSIBILITIES It is important to know exactly how much and how often to take the opioid pain medications you are prescribed. Never take opioids in higher amounts or more often than prescribed. Do not combine opioids with alcohol or other drugs that cause drowsiness, such as benzodiazepines, also known as benzos, including diazepam and alprazolam, muscle relaxants or sleep aids. Never sell or share prescription opioids. This is illegal. Store opioids in a secure place and out of reach of others (including children, family, friends and visitors). The last page(s) of this document has been signed and retained as a CHART COPY Signatures Patient Education Materials Anemia, Iron-Deficiency (Adult) Medication Leaflets My discharge plan and instructions have been reviewed and explained to me and I,ANNALISE GAINES understand my current condition and have read and understand these discharge instructions. I have received a written copy of the plan/instructions. If I have questions, I am aware that I should contact my doctor. 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: __ Date/Time: Relationship to Patient: Witness Name/Signature: Date/Time: [facility] Evaluation + Plan note Note Date & Type Note Facility Evaluation + Plan note No data available for this section [facility] Evaluation note Note Date & Type Note Facility Evaluation note Diagnosis Onset Date Resolution Anemia acute April 09, 2025 9:15am Bloating acute April 09, 2025 9:15am [facility] Work Phone: Progress note Note Date & Type Note Facility Progress note Note Date/Time April 09, 2025 10:57am [facility] [address] [place] [address] OFFICE VISIT Date of Service: 04/09/25 MR#: [id number] Acct: [id number] Name: ANNALISE GAINES Rep #: [id number] : 1985 Provider: MIGUELINA Cline Age/Sex: 39/F Location: [facility] Status: Signed Intake Intake Visit Reasons: Bloating GERD SIGNIFICANT ANEMIA Chief Complaint: Anemia Him Tech Required: No Accompanied by: Is patient in pain?: No Allergies No Known Allergies Allergy (Verified 04/09/25 09:35) Medications ?Medication ?Instructions ?Recorded ?Confirmed ?Type ferrous sulfate 27 mg iron tablet 27 mg PO QDAY 04/09/25 History omeprazole 20 mg capsule,delayed 20 mg PO QDAY 5 04/09/25 History release PFSH Social History Smoking Status: Never smoker alcohol intake: never substance use type: does not use what type of physical activity do you participate in: none HPI HPI Chief Complaint: Anemia Details: ANNALISE GAINES, is a 39 F who presents to the office today for establishment. Patient referred from primary care provider due to bloating and significant anemia. Patient notes that last week she was seen in the ED due to extreme weakness. In the ED her hemoglobin was 7.7. She was discharged with omeprazoleand ferrous sulfate. She denies abdominal pain, constipation, diarrhea, black or tarry stool or blood in her stool. She is unsure if she has heavy periods orlong periods. She does not see an oncologist hcc coders but was told in the ER that she may benefit from having a uterine ultrasound. ROS Const Constitutional: Positive for fatigue and weight change (loss); No fever(s) ENT ENT: No difficulty swallowing Gastro GI: Positive for bloating and diarrhea; No abdominal pain, belching, change in bowel habits, change in stool character, coffee ground emesis, constipation, cramping, heartburn, difficulty swallowing, feeling full early, excessive flatus, incontinent of stools, Vomiting blood/hematemesis, Blood in stool, loose stools, Black,tarry stools, nausea/dyspepsia, pain with swallowing, vomiting or other Musc Musculoskeletal: Positive for restless legs; No joint pain Skin Skin: No yellowing of the eye or itchy eyes Neuro Neurology: Positive for restless legs Psych Psychiatric: No anxiety and Positive for depression Endo Endocrine: Positive for fatigue and weight change (loss) Aller/Imm Allergy/Immunologic: No itchy eyes Jona/Lymp Hematologic/Lymphatic: No easy bleeding or easy bruising Exam Const General: cooperative, healthy appearing and comfortable Nutritional Appearance: average body habitus Orientation: alert HENNE Head: normal to inspection Ears: hearing grossly normal bilaterally Eyes General: appearance normal, both eyes and all related structures Neck Neck: normal visual inspection Chest Chest palpation & inspection: normal inspection of the chest Resp Effort & Inspection: normal respiratory effort Cardio Rate: regular rate Rhythm: regular rhythm GI Inspection: normal to inspection Auscultation: normal bowel sounds Palpation: soft and nontender Assessment and Plan Assessment and Plan (1) Anemia: Status: Acute Plan: Annalise is a 39-year-old female patient here today for evaluation of anemia and bloating. Patient seen in the ED 1 week ago due to extreme weakness and was found to have a hemoglobin of 7.7. She was started on omeprazole and ferrous sulfate. Patient denies abdominal pain, heartburn, blood in her stool or black tarry stool. She is unsure if she has heavy periods and does not see gynecology. Will repeat CBC today. She was scheduled for EGD and colonoscopy. I recommended she establish with a hcc coders for possible uterine ultrasound. Her low hemoglobin may be related to menstrual blood loss. - Repeat CBC - Continue iron and PPI - EGD and colonoscopy Note: BookThat[employer] speech recognition heel pricker software was used to create portions of this document. Sound-alike and misspelled words, as well as other heel pricker errors may be contained in the documentation. (2) Bloating: Status: Acute Orders: Orders CBC W/Diff, Automated Today D64.9 - Anemia, unspecified, R14.0 - Abdominal distension (gaseous) Coding Level of Care Code Off vis,est,level 3 Diagnoses Anemia D64.9 Bloating R14.0 04/09/25 0957 <Electronically signed by Ruby MCINTYRE> Date _ Ruby MCINTYRE Cosigner Signature: Date (if applicable) CC: ~ [facility] Work Phone: Reason for referral (narrative) Note Date & Type Note Facility Reason for referral (narrative) No reason for referral information available [facility] Work Phone: Summary Purpose Family History No Family History Records Found No data available for this section No Family History Records FoundNo Family History Records Found Advance Directives No Advanced Directives Records FoundNo Advanced Directives Records FoundNo Advanced Directives Records Found Chief Complaint and Reason for Visit Chief Complaint Admit Date Bloating GERD SIGNIFICANT ANEMIA April 09, 2025 9:15am INT LABS April 09, 2025 1 0:02am Reason for Visit Admit Date Anemia April 09, 2025 9 :15am Bloating April 09, 2025 9 :15am Additional Source Comments INFORMATION SOURCE (unrecogn ized section and content) DATE CREATED AUTHOR 08/26/2020 [facility] ([place]) DATE CREATED AUTHOR AUTHOR'S ORGANIZ ATION 04/12/2025 [facility] DATE CREATED AUTHOR AUTHOR'S ORGANIZ ATION 05/01/2025 [facility] Patient Care team informatio n (unrecognized section and content) Team Status: Active Member Role/Relationship Status Dates Dr. Jack Andrade DO Primary care physician Active Team Status: Inactive Member Role/Relationship Status Dates MIGUELINA Cline Attending physician Active Start: April 09, 2025 End: April 09, 2025 Team Status: Inactive Member Role/Relationship Status Dates Dr. Jack Andrade DO Primary care physician Active Start: April 09, 2025 End: April 09, 2025 MIGUELINA Cline Attending physician Active Start: April 09, 2025 End: April 09, 2025 MIGUELINA Cline Referring Provider Active Start: April 09, 2025 End: April 09, 2025 Goals (unrecognized section and content) Goals may be documented in a n alternate section FOR RECORDS PERTAINING TO PATIENTS WHO ARE OR HAVE BEEN ENROLLED IN A CHEMICAL DEPENDENCY/SUBSTANCEABUSE PROGRAM, SOME INFORMATION MAY BE OMITTED. This clinical summary was aggregated from multiple sources. Caution should be exercised in using it in the provision of clinical care. This summary normalizes information from multiple sources, and as a consequence, information in this document may materially change the coding, format and clinical context of patient data. In addition, data may be omitted in some cases. CLINICAL DECISIONS SHOULD BE BASED ON THE PRIMARY CLINICAL RECORDS. [facility] [email or web address] [facility]. provides no warranty or guarantee of the accuracy or completeness of information in this document.
--- NOTE | 2025-05-07 10:45 | COLBX_PTH ---
PATIENT: DEMARCUS GAINES LOC: [facility] U#:[id number] AGE/SX: 39/F ROOM: RE05/07/[address]: Dr. Paul Kline DO : 1985 BED: DIS: 05/07/2025 SPEC #: [id number] RECD: 05/07/25 12:42 STATUS: LUIS CARLOS REJude #: [id number] EKATERINA: 05/07/25 10:[address]: Paul Kline DEPT: SURGICAL PATHOLOGY RECD BY: Yan Hardy ENTERED: 05/07/25 14:22 SP TYPE: COLON BX OTHR DR: Dr. Jack Andrade DO Tissues: A - Duodenum, NOS B - Gastric mucous membrane Procedures: Surgery Specimen Level IV HEADER OPERATION: Colonoscopy, EGD, biopsy, polypectomy PRE-OP DIAGNOSIS: Bloating, anemia TISSUE SUBMITTED: A- Duodenum biopsy, B- Gastric body biopsy MICROSCOPIC DIAGNOSIS A. Small intestine, duodenum, biopsy: - Small bowel mucosa with no pathologic change B. Stomach, body, polyp biopsy: - Fundic gland polyp MICROSCOPIC DESCRIPTION Slides are reviewed. GROSS DESCRIPTION A. Received in fixative is one container labeled with the patient's name and designated Duodenum biopsy. The specimen consists of multiple irregular fragments of burks tissue that in aggregate measure 0.9 x 0.8 x 0.1 cm. The specimen is totally submitted in one cassette. B. Received in fixative is one container labeled with the patient's name and designated Gastric body polyp. The specimen consists of a 1.1 x 0.8 x 0.6 cm red and granular, lobulated polypoid tissue fragment, devoid of an identifiable resection margin. The specimen is bisected (on the long axis) and entirely submitted in 1 cassette. [place] 05/07/2025 CPT:35108q0
--- NOTE | 2025-05-07 11:35 | PCM.POST.ANE ---
Anesthesia: Postop Eval I Current Vital Signs Temperature: 97.6 F Pulse Rate: 77 Blood Pressure: 104/61 Respiratory Rate: 16 Pulse Ox: 99 Oxygen Delivery Method: Room Air Assessment Airway patent: Yes Spontaneous unlabored respirations: Yes Mental status: Asleep nausea: No Vomiting: No Anesthesia Complication: No Fluid Hydration Crystalloid volume administer (ml): 900 Total IV fluid infused: 900 Progress Note Anesthesia document: Postop Eval 1 completed: Yes
--- NOTE | 2025-05-07 11:39 | OP.PROVAT_ITS ---
05/07/2025 Jack Andrade Re : Upper GI endoscopy procedure for Annalise Raymond Dear Raymond This procedure was performed on Wednesday, May 07, 2025. My impressions and recommendations are as follows: Impressions : - Normal esophagus. - A single gastric polyp. Resected and retrieved. - Erythematous duodenopathy. Biopsied. Recommendations : - Discharge patient to home. - Resume previous diet. - Continue present medications. - Await pathology results. My findings are described in the full procedure note, which is enclosed. If I can be of further assistance, please feel free to contact me at . Sincerely, Paul Kline, 05/07/2025 11:39:10 AM This report has been signed electronically.
--- NOTE | 2025-05-07 11:39 | OP.EGD_ITS ---
Patient Name: Annalise Raymond Procedure Date: 05/07/2025 10:50 AM Date of : 1985 Age: 39 Procedure: Upper GI endoscopy Indications: Iron deficiency anemia Providers: Paul Kline DO Referring MD: Jack Andrade Medicines: Monitored Anesthesia Care Patient Profile: This is a 39 year old female. Refer to note in patient chart for documentation of history and physical. Patient has symptoms. Complications: No immediate complications. Procedure: Pre-Anesthesia Assessment: - Prior to the procedure, a History and Physical was performed, and patient medications and allergies were reviewed. The patient is competent. The risks and benefits of the procedure and the sedation options and risks were discussed with the patient. All questions were answered and informed consent was obtained. Patient identification and proposed procedure were verified by the physician in the pre-procedure area. Mental Status Examination: alert and oriented. Airway Examination: normal oropharyngeal airway and neck mobility. Respiratory Examination: clear to auscultation. CV Examination: normal. Prophylactic Antibiotics: The patient does not require prophylactic antibiotics. Prior Anticoagulants: The patient has taken no anticoagulant or antiplatelet agents except for NSAID medication. ASA Grade Assessment: II - A patient with mild systemic disease. After reviewing the risks and benefits, the patient was deemed in satisfactory condition to undergo the procedure. The anesthesia plan was to use monitored anesthesia care (MAC). Immediately prior to administration of medications, the patient was re-assessed for adequacy to receive sedatives. The heart rate, respiratory rate, oxygen saturations, blood pressure, adequacy of pulmonary ventilation, and response to care were monitored throughout the procedure. The physical status of the patient was re-assessed after the procedure. After obtaining informed consent, the endoscope was passed under direct vision. Throughout the procedure, the patient's blood pressure, pulse, and oxygen saturations were monitored continuously. The Colonoscope was introduced through the mouth, and advanced to the fourth part of the duodenum. Small bowel enteroscopy was deemed necessary. The upper GI endoscopy was accomplished without difficulty. The patient tolerated the procedure well. Scope In: 11:02:41 AM Scope Out: 11:08:58 AM Total Procedure Duration Time 0 hours 6 minutes 17 seconds Findings: The examined esophagus was normal. A single 10 mm hyperplastic polyp with bleeding and stigmata of recent bleeding was found in the gastric body. The polyp was removed with a hot snare. Resection and retrieval were complete. Verification of patient identification for the specimen was done. Patchy mildly erythematous mucosa without active bleeding and with no stigmata of bleeding was found in the entire duodenum. Biopsies were taken with a cold forceps for histology. Verification of patient identification for the specimen was done. Estimated blood loss was minimal. Impression: - Normal esophagus. - A single gastric polyp. Resected and retrieved. - Erythematous duodenopathy. Biopsied. Recommendation: - Discharge patient to home. - Resume previous diet. - Continue present medications. - Await pathology results. Procedure Code(s): --- Professional --- 07230, Small intestinal endoscopy, enteroscopy beyond second portion of duodenum, not including ileum; with removal of tumor(s), polyp(s), or other lesion(s) by snare technique 95415, 59,51, Small intestinal endoscopy, enteroscopy beyond second portion of duodenum, not including ileum; with biopsy, single or multiple CPT copyright 2021 [employer]. All rights reserved. The codes documented in this report are preliminary and upon field return repairer review may be revised to meet current compliance requirements. Paul Kline DO 05/07/2025 11:39:10 AM This report has been signed electronically. Number of Addenda: 0 Note Initiated On: 05/07/2025 10:50 AM
--- NOTE | 2025-05-07 11:41 | OP.PROVAT_ITS ---
05/07/2025 Jack Andrade Re : Colonoscopy procedure for Annalise Raymond Dear Raymond This procedure was performed on Wednesday, May 07, 2025. My impressions and recommendations are as follows: Impressions : - The entire examined colon is normal. - The examined portion of the ileum was normal. - No specimens collected. Recommendations : - Discharge patient to home. - Resume previous diet. - Continue present medications. - Repeat colonoscopy in 10 years for screening purposes. My findings are described in the full procedure note, which is enclosed. If I can be of further assistance, please feel free to contact me at . Sincerely, Paul Kline, 05/07/2025 11:40:38 AM This report has been signed electronically.
--- NOTE | 2025-05-07 11:41 | OP.COLON_ITS ---
Patient Name: Annalise Raymond Procedure Date: 05/07/2025 11:09 AM Date of : 1985 Age: 39 Procedure: Colonoscopy Indications: Iron deficiency anemia Providers: Paul Kline DO Referring MD: Jack Andrade Medicines: Monitored Anesthesia Care Patient Profile: This is a 39 year old female. Refer to note in patient chart for documentation of history and physical. Patient has symptoms. Last Colonoscopy: none. The patient's first colonoscopy is today. Complications: No immediate complications. Procedure: Pre-Anesthesia Assessment: - Prior to the procedure, a History and Physical was performed, and patient medications and allergies were reviewed. The patient is competent. The risks and benefits of the procedure and the sedation options and risks were discussed with the patient. All questions were answered and informed consent was obtained. Patient identification and proposed procedure were verified by the physician in the pre-procedure area. Mental Status Examination: alert and oriented. Airway Examination: normal oropharyngeal airway and neck mobility. Respiratory Examination: clear to auscultation. CV Examination: normal. Prophylactic Antibiotics: The patient does not require prophylactic antibiotics. Prior Anticoagulants: The patient has taken no anticoagulant or antiplatelet agents except for NSAID medication. ASA Grade Assessment: II - A patient with mild systemic disease. After reviewing the risks and benefits, the patient was deemed in satisfactory condition to undergo the procedure. The anesthesia plan was to use monitored anesthesia care (MAC). Immediately prior to administration of medications, the patient was re-assessed for adequacy to receive sedatives. The heart rate, respiratory rate, oxygen saturations, blood pressure, adequacy of pulmonary ventilation, and response to care were monitored throughout the procedure. The physical status of the patient was re-assessed after the procedure. After I obtained informed consent, the scope was passed under direct vision. Throughout the procedure, the patient's blood pressure, pulse, and oxygen saturations were monitored continuously. The Colonoscope was introduced through the anus and advanced to the terminal ileum. The colonoscopy was performed without difficulty. The patient tolerated the procedure well. The quality of the bowel preparation was adequate. The terminal ileum, ileocecal valve, appendiceal orifice, and rectum were photographed. Scope In: 11:11:57 AM Scope Withdrawal Time 0 hours 10 minutes 7 seconds Scope Out: 11:26:27 AM Total Procedure Duration Time 0 hours 14 minutes 30 seconds Findings: The perianal and digital rectal examinations were normal. The colon (entire examined portion) appeared normal. The terminal ileum appeared normal. Impression: - The entire examined colon is normal. - The examined portion of the ileum was normal. - No specimens collected. Recommendation: - Discharge patient to home. - Resume previous diet. - Continue present medications. - Repeat colonoscopy in 10 years for screening purposes. Procedure Code(s): --- Professional --- 81395, Colonoscopy, flexible; diagnostic, including collection of specimen(s) by brushing or washing, when performed (separate procedure) CPT copyright 2021 [employer]. All rights reserved. The codes documented in this report are preliminary and upon technologist development review may be revised to meet current compliance requirements. Paul Kline DO 05/07/2025 11:40:38 AM This report has been signed electronically. Number of Addenda: 0 Note Initiated On: 05/07/2025 11:09 AM
[2025-05-07 13:16] LABS: Hematocrit 36.3 % (37-47); Hemoglobin 11.3 g/dL (12.0-15.0); Immature Granulocytes Count 0.030 X10^3/uL (0.0-0.0); Mean Corp Hgb Conc 31.1 g/dL (32-36); Mean Corpuscular Volume 87.3 fL (81-99); Mean Platelet Vol. 8.9 fl (6.2-12.0); NRBC Flagged by Analyzer 0 % (0-5); POSITIVE MORPHOLOGY YES; Platelet Count 399 K/mm3 (150-450); Red Blood Count 4.16 M/mm3 (4.2-5.4); White Blood Count 7.6 K/mm3 (4.4-11.0)
[2025-05-07 13:50] LABS: Differential Indicated SCAN CRITERIA MET; Immature Reticulocyte Fraction 13.40 % (3.00-15.90); Reticulocyte Count 1.11 % (0.5-1.5)
[2025-05-07 13:51] LABS: Differential Comment SCANNED; Tear Drop Cell 1+
[2025-05-07 13:55] LABS: Ferritin 46 ng/mL (22-378); Iron 48 ug/dL (50-170); Iron Binding Capacity,Total 313 ug/dL (250-450); Iron Binding Capacity,Unsat 265 ug/dL (228-428); LDH 144 U/L (84-246)
--- NOTE | 2025-05-07 16:34 | PCM.POSTANE2 ---
Anesthesia Postop Eval I Sum Postop Eval Completion status Anesthesia document: Postop Eval 1 completed: Yes Anesthesia Postop Eval I Summary Anesthesia Postop Eval I Summary: Anesthesia Postop Eval I: Assessment Summary Airway patent Yes 05/07/25 11:36 [email or web address] Spontaneous unlabored Yes 05/07/25 11:36 [email or web address] respirations Mental status Asleep 05/07/25 11:36 [email or web address] nausea No 05/07/25 11:36 [email or web address] Vomiting No 05/07/25 11:36 [email or web address] Anesthesia Postop Eval I: Fluid Summary Crystalloid volume administer 900 05/07/25 11:36 [email or web address] (ml) Colloids volume administered ( ml) Blood Product volume administered (ml) Total IV fluid infused 900 05/07/25 11:36 [email or web address] Anesthesia Postop Eval I: Summary Notes Anesthesia Complication No 05/07/25 11:36 [email or web address] Anesthesia Complication Comment: Post-operative progress note Anesthesia: Postop Eval II Evaluation Mental status: Awake and Calm Pain Level: 0 nausea: No Vomiting: No
[2025-05-12 11:08] LABS: Albumin 3.9 g/dL (2.9-4.4); Gamma Globulin 1.2 g/dL (0.4-1.8); Immunoglobulin A 136 mg/dL (87-352); Immunoglobulin G 1180 mg/dL (586-1602); Immunoglobulin M 67 mg/dL (26-217); PROEL- TOTAL PROTEIN 6.8 g/dL (6.0-8.5)
== END 2025-05-07 12:53 | disposition home or self-care (01) ==
LOC: EN 09:27 → AC 09:29
PROVIDERS: Anesthesiology; PCP Family Medicine; Referring Provider Family Medicine; Visit Provider Internal Medicine Gastroenterology
PROC: 0DJD8ZZ Inspection of Lower Intestinal Tract, Via Natural or Artificial Opening Endoscopic (ICD-10-PCS; CPT 45378; principal; 2025-05-07 10:40)
DX: D50.9 Iron deficiency anemia, unspecified (principal); K31.7 Polyp of stomach and duodenum; R14.0 Abdominal distension (gaseous); K63.89 Other specified diseases of intestine
CPT/HCPCS: 43251; 43239; 45378; 36415; 81025; 82728; 82784; 83516; 83540; 83550; 83615; 84165; 85025; 85045; 86255; 86334; 88305; J2405